=== PATIENT | female | born 1980 | race African-American/Black ===

== ENCOUNTER 2018-07-19 21:02 | Emergency (ER) | payer BC, OTHER ==
[2018-07-19] MEDS ORDERED: ONDANSETRON 4 MG/2 ML VIAL IVPUSH ONE (21:19)
--- NOTE | 2018-07-19 21:19 | PDOC ---
Rapid Medical Evaluation Time Seen by Provider: 07/19/18 21:18 Medical Evaluation: Allergies Allergy/AdvReac Type Severity Reaction Status Date / Time No Known Allergies Allergy Verified 07/23/15 00:21 07/19/18 21:18 I have performed a brief in-person evaluation of this patient. The patient presents with a chief complaint of: throwing up since 2:30am, + diarrhea, abd cramping, ate chicken and rice and BLT yesterday Pertinent physical exam findings: pale I have ordered the following: labs, urine, fluids, meds The patient will proceed to the ED for further evaluation.
[2018-07-19] MEDS ORDERED: SODIUM CHLORIDE 1,000 ML IV STA (21:20)
[2018-07-19] MEDS ORDERED: DICYCLOMINE HCL 20 MG TABLET PO ONE (21:20)
[2018-07-19 21:22] VITALS: BP 123/85; PULSE 68; TEMP 98; BMI 23.1
--- NOTE | 2018-07-19 22:04 | PDOC ---
History of Present Illness - General Chief Complaint: Nausea/Vomiting Stated Complaint: NAUSEA VOMITTING Time Seen by Provider: 07/19/18 21:18 History Source: Patient Exam Limitations: No Limitations - History of Present Illness Initial Comments: 07/19/18 22:20 37 year old female with PMH gastritis, asthma, uterine fibroids presented to ED for nausea/vomiting/diarrhea/abdominal pain since 0200 today. Pt stated she ate a BLT and fruit last night prior to symptoms. Pt admitted to chills/sweats. Pt admitted to diffuse intermittent crampy abdominal pain. Pt denied blood in stool. Pt admitted to the last episode of vomiting having blood streaks. Allergies: NKDA Past History - Past Medical History Allergies/Adverse Reactions: Allergies Allergy/AdvReac Type Severity Reaction Status Date / Time No Known Allergies Allergy Verified 07/19/18 21:22 Home Medications: Ambulatory Orders Mag Hydrox/Al Hydrox/Simeth [MAALOX *SUSPENSION* -] 30 ml PO Q6H PRN #1 bottle 03/26/15 Ondansetron HCl [Zofran] 4 mg PO Q6H PRN #12 tablet 03/26/15 Oxycodone HCl/Acetaminophen [Percocet 5-325 mg Tablet] 1 tab PO Q4H PRN #3 tablet 03/26/15 Mag Hydrox/Al Hydrox/Simeth [MAALOX *SUSPENSION* -] 30 ml PO Q6H PRN #1 bottle 07/21/15 Ondansetron HCl [Zofran] 4 mg PO Q6H PRN #15 tablet 07/21/15 Ranitidine HCl [Zantac] 150 mg PO BID PRN #20 tablet 07/21/15 Acetaminophen [Tylenol .Regular Strength -] 650 mg PO Q6H PRN #0 tablet Lidocaine 5% Patch [Lidoderm -] 1 patch TP DAILY #30 patch 07/26/15 Anemia: No Asthma: Yes Cancer: Yes (cervical--leep) Cardiac Disorders: No CVA: No COPD: No CHF: No Dementia: No Diabetes: No GI Disorders: No Disorders: No HTN: No Hypercholesterolemia: No Liver Disease: No Seizures: No Thyroid Disease: No - Surgical History Abdominal Surgery: No Appendectomy: No Cholecystectomy: No Lung Surgery: No Neurologic Surgery: No Orthopedic Surgery: No - Suicide/Smoking/Psychosocial Hx Smoking History: Unknown if ever smoked Have you smoked in the past 12 months: No Information on smoking cessation initiated: No Hx Alcohol Use: No Drug/Substance Use Hx: No Substance Use Type: None Hx Substance Use Treatment: No Review of Systems - Review of Systems Able to Perform ROS?: Yes Comments:: 07/19/18 22:21 General: admitted to chills, generalized weakness. denied fever. HEENT: denied sore throat, rhinorrhea, ear pain. Heart: denied chest pain, palpitations, syncope, diaphoresis. Respiratory: denied shortness of breath, cough, sputum production, hemoptysis. Abdomen: admitted to abdominal pain, nausea, vomiting, diarrhea. denied constipation, blood in stool. : denied dysuria, increased urinary frequency, hematuria, urinary incontinence , flank pain. Back: denied back pain. Musculoskeletal: denied joint pain, muscle pain, joint swelling. Neurological: denied headache, dizziness, numbness, tingling, weakness. Skin: denied rash, laceration, abrasion. *Physical Exam - Vital Signs Last Vital Signs Temp Pulse Resp BP Pulse Ox 98.0 F 68 16 123/85 100 07/19/18 21:19 07/19/18 21:19 07/19/18 21:19 07/19/18 21:19 07/19/18 21:19 - Physical Exam Comments: 07/19/18 22:23 Constitutional: Well-nourished, Well-developed, appearing stated age. HEENT: head is normocephalic, atraumatic. EOMI. PERRLA. dry mucous membranes. Neck: supple. Full ROM. Heart: regular rhythm. no murmurs, rubs or gallops. Lungs: clear to auscultation bilaterally. no crackles, rhonchi or wheezing. no stridor. Abdomen: soft, flat. generalized abdominal pain, worst in epigstrium. normal bowel sounds. no rebound, guarding, masses. amaya negative. obturator negative. psoas negative. Extremities: peripheral pulses intact. no lower extremity edema. Neurological: CN 2-12 grossly intact. moves all four extremities. Psych: awake, alert, oriented x3. follows commands. answers questions appropriately. ED Treatment Course - LABORATORY CBC & Chemistry Diagram: 07/19/18 22:37 07/19/18 22:27 Medical Decision Making - Medical Decision Making 07/19/18 22:24 37 year old female with above PMH presented to ED for n/v/d/abdominal pain. Initial Vital Signs Temp Pulse Resp BP Pulse Ox 98.0 F 68 16 123/85 100 07/19/18 21:19 07/19/18 21:19 07/19/18 21:19 07/19/18 21:19 07/19/18 21:19 Afebrile. No tachycardia. No tachypnea. No hypotension. No hypoxia on room air. Medications ordered: pepcid, zofran, normal saline bolus 1000 cc, bentyl, tylenol IV Imaging ordered: none Labs ordered: CBC, CMP, lipase, serum , UA 07/19/18 22:56 CBC WBC 3.4 K/mm3 (4.0-10.0) L 07/19/18 22:27 RBC 4.68 M/mm3 (3.60-5.2) 07/19/18 22:27 Hgb 11.1 GM/dL (10.7-15.3) 07/19/18 22:27 Hct 36.2 % (32.4-45.2) 07/19/18 22:27 MCV 77.3 fl (80-96) L 07/19/18 22: MCH 23.7 pg (25.7-33.7) L 07/19/18 22:27 MCHC 30.7 g/dl (32.0-36.0) L 07/19/18 22:27 RDW 20.4 % (11.6-15.6) H 07/19/18 22:27 MPV 9.3 fl (7.5-11.1) 07/19/18 22:27 Absolute Neuts (auto) 2.6 K/mm3 (1.5-8.0) 07/19/18 22:27 Neutrophils % 78.1 % (42.8-82.8) D 07/19/18 22: Lymphocytes % 13.7 % (8-40) D 07/19/18 22:27 Monocytes % 7.6 % (3.8-10.2) 07/19/18 22:27 Eosinophils % 0.0 % (0-4.5) D 07/19/18 22:27 Basophils % 0.6 % (0-2.0) 07/19/18 22: Nucleated RBC % 0 % (0-0) 07/19/18: No leukocytosis. No anemia. Low MCV. 07/19/18 23:08 CMP Sodium 137 mmol/L (136-145) 07/19/18: Potassium 4.3 mmol/L (3.5-5.1) 07/19/18: Chloride 106 mmol/L (98-107) 07/19/18: Carbon Dioxide 22 mmol/L (21-32) 07/19/18: Anion Gap 9 MMOL/L (8-16) 07/19/18: BUN 9 mg/dL (7-18) 07/19/18: Creatinine 0.9 mg/dL (0.55-1.3) 07/19/18: Est GFR (CKD-EPI)AfAm 94.67 07/19/18: Est GFR (CKD-EPI)NonAf 81.68 07/19/18: Random Glucose 92 mg/dL (74-106) 07/19/18: Calcium 9.3 mg/dL (8.5-10.1) 07/19/18: Total Bilirubin 0.6 mg/dL (0.2-1) 07/19/18: AST 82 U/L (15-37) H 07/19/18: ALT 100 U/L (13-61) H 07/19/18: Alkaline Phosphatase 86 U/L (45-117) 07/19/18: Total Protein 7.9 g/dl (6.4-8.2) 07/19/18: Albumin 3.8 g/dl (3.4-5.0) 07/19/18: Lipase 269 U/L (73-393) 07/19/18: Serum , Qual Negative 07/19/18: No electrolyte abnormalities. No PAPITO. Mild elevation of AST and ALT. Normal lipase. Serum negative. Urine Test Results Urine Color Yellow 07/19/18 22:37 Urine Appearance Cloudy 07/19/18 22:37 Urine pH 5.0 (5.0-8.0) D 07/19/18 22:37 Ur Specific [place] 1.032 (1.010-1.035) 07/19/18 22:37 Urine Protein 1+ (NEGATIVE) H 07/19/18 22:37 Urine Glucose (UA) Negative (NEGATIVE) 07/19/18 22:37 Urine Ketones 3+ (NEGATIVE) H 07/19/18 22:37 Urine Blood 2+ (NEGATIVE) H 07/19/18 22:37 Urine Nitrite Negative (NEGATIVE) 07/19/18 22:37 Urine Bilirubin Negative (NEGATIVE) 07/19/18 22:37 Ur Leukocyte Esterase Negative (NEGATIVE) 07/19/18 22:37 No UTI. Hematuria. Proteinuria. 07/19/18 23:42 Pt tolerated PO challenge, reported improvement of symptoms. Pt informed of transaminitis and lab results. Pt informed to follow up with PCP and GI. Pt expressed understanding and agrees with plan for care. Pt discharged. Discharge medications: zofran, protonix *DC/Admit/Observation/Transfer Diagnosis at time of Disposition: Nausea vomiting and diarrhea, Transaminitis - Discharge Dispostion Condition at time of disposition: Improved Decision to Admit order: No - Referrals Referrals: Valeria Guzman [Primary Care Provider] - Antonio Mckeon DO [Staff Physician] - Macie Lala MD [Staff Physician] - Jonathan Garza MD [Staff Physician] - Louis Diaz MD [Staff Physician] - - Patient Instructions Printed Discharge Instructions: DI for Diarrhea and Traveler's Diarrhea -- Adult, DI for Vomiting -- Adult Additional Instructions: You were seen today for nausea, vomiting, diarrhea. Your liver enzymes were elevated. Have these numbers rechecked by your primary care doctor within a week. The rest of your blood work was normal. I have sent a prescription to your pharmacy for an anti-nausea medication: Zofran. Take as advised on label. I have sent a prescription to your pharmacy for an anti-acid medication: Protonix. Take as advised on label. Follow up with your primary care doctor within 2-3 days. Bring all paperwork given to you today to your appointment. Your care is not complete without follow up. I have provided you with multiple paper pattern folder referrals, follow up within 5 day. Your care is not complete until you follow up. Return to the Emergency Department for increasing pain, vomiting despite Zofran use, chest pain, shortness of breath, blood in stool, increasing amount of blood in vomit or any other new, worsening or concerning symptoms. - Post Discharge Activity
[2018-07-19] MEDS ORDERED: ACETAMINOPHEN 1000 MG/100 ML VIAL (NON FORMULARY) IVPB ONE (22:05)
[2018-07-19] MEDS ORDERED: DICYCLOMINE HCL 10 MG CAPSULE ONE (22:07)
[2018-07-19] MEDS ORDERED: ONDANSETRON 4 MG/2 ML VIAL ONE (22:07)
[2018-07-19] MEDS ORDERED: ACETAMINOPHEN INJECTION 100 ML IVPB ONE (22:13)
[2018-07-19] MEDS ORDERED: FAMOTIDINE 20 MG/50 ML IVPB 20 MG/50 ML MG IVPB ONE (22:19)
[2018-07-19 22:32] LABS: BASO % 0.6 % (0-2.0); HEMATOCRIT 36.2 % (32.4-45.2); HEMOGLOBIN 11.1 GM/dL (10.7-15.3); LYMPH % 13.7 % (8-40); MCH 23.7 pg (25.7-33.7); MCHC 30.7 g/dl (32.0-36.0); MEAN CELL VOLUME 77.3 fl (80-96); MEAN PLT VOLUME 9.3 fl (7.5-11.1); MONO % 7.6 % (3.8-10.2); NEUT % 78.1 % (42.8-82.8); RBC 4.68 M/mm3 (3.60-5.2); RDW 20.4 % (11.6-15.6); WHITE BLOOD COUNT 3.4 K/mm3 (4.0-10.0)
--- NOTE | 2018-07-19 22:36 | PDOC ---
Documentation entered by Nathalia Landin SCRIBE, acting as scribe for Maximo Villeda MD. Maximo Villeda MD: This documentation has been prepared by the [email or web address], Nathalia Landin SCRIBE, under my direction and personally reviewed by me in its entirety. I confirm that the documentation accurately reflects all work, treatment, procedures, and medical decision making performed by me. Attending Attestation - Resident Resident Name: JannethGiana - ED Attending Attestation I have performed the following: I have examined & evaluated the patient, The case was reviewed & discussed with the resident, I agree w/resident's findings & plan, Exceptions are as noted - HPI HPI: 07/19/18 22:22 The patient is a 37 year old female with past medical history significant for asthma and uterine fibroids presets to the emergency department with vomiting and diarrhea. The patient reports since 2:00 am today, shes been having nausea , vomiting, with a single episode with blood streaks and non bloody-melanotic diarrhea. The patient reports the night before she had some fruits and a BLT sandwich. The patient reports a prior hx of gastroenteritis, denies following. Denies fever, chills, chest pain, urinary symptoms. Denies sick contact or recent travel. Allergies: NKDA. - Physicial Exam PE: 07/20/18 04:29 Agree with exam as documented by resident - Medical Decision Making 07/20/18 04:30 Exam inconsistent with acute abdomen, consider AGE f/u labs, symptomatic tx, re-eval dispo per clinical course
[2018-07-19 22:49] LABS: HEMATOCRIT 36.2 % (32.4-45.2); MCH 23.6 pg (25.7-33.7); MCHC 30.5 g/dl (32.0-36.0); MEAN CELL VOLUME 77.4 fl (80-96); MEAN PLT VOLUME 9.5 fl (7.5-11.1); RBC 4.67 M/mm3 (3.60-5.2); RDW 20.2 % (11.6-15.6); WHITE BLOOD COUNT 3.3 K/mm3 (4.0-10.0)
[2018-07-19 22:52] LABS: EPI CELLS 12.9 /HPF (0-5/HPF); HCG,QUALITATIVE URINE Negative; HYALINE CASTS 10 /lpf (0-8); URINE APPEARANCE CLOUDY; URINE BILIRUBIN NEGATIVE (NEGATIVE); URINE COLOR YELLOW; URINE GLUCOSE (UA) NEGATIVE (NEGATIVE); URINE KETONE 3+ (NEGATIVE); URINE LEUK ESTERASE NEGATIVE (NEGATIVE); URINE NITRITE NEGATIVE (NEGATIVE); URINE PROTEIN 1+ (NEGATIVE); URINE RBC 5 /hpf (0-4); URINE WBC 4 /hpf (0-5)
[2018-07-19 23:01] LABS: PLATELET COUNT 196 K/MM3 (134-434)
[2018-07-19 23:06] LABS: ALBUMIN 3.8 g/dl (3.4-5.0); BILIRUBIN,TOTAL 0.6 mg/dL (0.2-1); CALCIUM 9.3 mg/dL (8.5-10.1); CREATININE 0.9 mg/dL (0.55-1.3); POTASSIUM 4.3 mmol/L (3.5-5.1); TOT PROT 7.9 g/dl (6.4-8.2)
[2018-07-19 23:14] LABS: PLATELET COUNT 192 K/MM3 (134-434)
[2018-07-19 23:15] LABS: PLATELET ESTIMATE ADEQUATE
== END 2018-07-20 00:17 | disposition home or self-care (01) ==
LOC: JER 21:02
PROC: 3E0337Z Introduction of Electrolytic and Water Balance Substance into Peripheral Vein, Percutaneous Approach (ICD-10-PCS; principal; 2018-07-19)
PROC: 3E033GC Introduction of Other Therapeutic Substance into Peripheral Vein, Percutaneous Approach (ICD-10-PCS; 2018-07-19)
PROC: 3E033GC Introduction of Other Therapeutic Substance into Peripheral Vein, Percutaneous Approach (ICD-10-PCS; 2018-07-19)
PROC: 3E033NZ Introduction of Analgesics, Hypnotics, Sedatives into Peripheral Vein, Percutaneous Approach (ICD-10-PCS; 2018-07-19)
DX: R74.0 Nonspecific elevation of levels of transaminase and lactic acid dehydrogenase [LDH] (principal); R10.84 Generalized abdominal pain; R11.2 Nausea with vomiting, unspecified
CPT/HCPCS: 36415; 80053; 81003; 83690; 84703; 85025; 85027; 99283-25; J0131; J7030